=== PATIENT | male | born 1990 | race Asian ===

== ENCOUNTER 2024-03-04 19:50 | Emergency (ER) | payer BC ==
[2024-03-04] MEDS ORDERED: ONDANSETRON 4 MG/2 ML VIAL ONE (20:38)
[2024-03-04] MEDS ORDERED: NA CHLORIDE 0.9% 1,000 ML ONE (20:38)
[2024-03-04] MEDS ORDERED: FAMOTIDINE 20 MG/2 ML VIAL IV ONE (20:38)
--- NOTE | 2024-03-04 21:11 | RAD REPORT ---
EXAM: Chest Single View HISTORY: epigastric pain COMPARISON: None. FINDINGS: LUNGS/PLEURA: The lungs are clear. No pleural effusions or pneumothorax. No pulmonary edema. MEDIASTINUM: The mediastinal silhouette is within normal limits. CARDIAC: The cardiac silhouette is within normal limits. UPPER ABDOMEN: No significant abnormality. BONES: No acute abnormality. LINES/TUBES/OTHER: N/A IMPRESSION: No evidence of acute cardiopulmonary disease.
[2024-03-04 21:12] LABS: Albumin 3.6 g/dL (3.4-5.0); Albumin/Globulin Ratio 0.8 (1.1-1.8); Anion Gap 11.6 mEq/L (5.0-15.0); Bilirubin Total 0.5 mg/dL (0.2-1.0); Globulin 4.6 g/dL (2.3-3.5); Potassium 3.6 mEq/L (3.5-5.1); Protein, Total 8.2 g/dL (6.4-8.2)
--- NOTE | 2024-03-04 21:20 | RAD REPORT ---
Abdomen Exam Limited: 03/04/2024 8:50 PM CLINICAL HISTORY: EPIGASTRIC PAIN STUDY: Limited right upper quadrant ultrasound of abdomen. COMPARISON: None. FINDINGS: Liver: Limited evaluation but grossly unremarkable. Bile ducts: No intrahepatic or extrahepatic biliary ductal dilatation. Common bile duct measures 2 mm. Gallbladder: Negative for cholelithiasis or acute cholecystitis. No gallbladder wall thickening. Smal l gallbladder polyp measuring 4 mm. IMPRESSION: Negative for cholelithiasis or acute cholecystitis. No biliary ductal dilatation. 4 mm gallbladder polyp. Assuming the patient is low risk for gallbladder cancer, these are frequently followed with a twelve-month ultrasound.
[2024-03-04 21:51] LABS: Absolute Basophils 0.1 K/uL (0-0.5); Absolute Lymphocytes (CBC) 1.1 K/uL (0.7-4.9); Absolute Monocytes 0.4 K/uL (0.1-1.3); Absolute Neutrophil 6.9 K/uL (1.8-8.0); Basophils % 0.7 % (0-1.3); Eosinophils % 0.3 % (0-4.4); Hematocrit 16.1 % (39.6-49.0); Lymphocytes % 12.7 % (15.3-44.8); MCH 12.2 pg (27.0-35.0); MCHC 25.1 g/dL (32.0-36.0); MCV < 50.0 fL (80-100); Monocytes % 4.5 % (3.3-12.3); Neutrophils % 81.8 % (41.7-73.7); Nucleated Red Blood Cells % 0.3 % (0-0); Platelets 326 thou/uL (152-406); Red Cell Distribution Width 24.4 % (12.1-15.2)
--- NOTE | 2024-03-04 21:56 | RAD REPORT ---
EXAMINATION: CT ABDOMEN AND PELVIS WITH CONTRAST CLINICAL INDICATION: Male, 34 years old.EPIGASTRIC PAIN TECHNIQUE: CT abdomen and pelvis was performed, after the administration of IV contrast, as per [facility] protocol. Axial, sagittal and coronal reconstructions were obtained. One or more of the following dose reduction techniques were used: Automated exposure control, adjustment of the mA and/o r kV according to patient size, and/or iterative reconstruction. Unless otherwise specified, incidental findings do not require dedicated imaging follow-up. [id number]. COMPARISON: No prior exam. FINDINGS: LOWER CHEST: No acute process identified.No significant pericardial effusion. Mild circumferential th ickening of the distal esophagus which could reflect esophagitis. UPPER GI: No significant abnormality. LIVER: No significant focal abnormality. GALLBLADDER/BILE DUCTS: No biliary ductal dilatation.? PANCREAS: No mass, ductal dilation, or forest-pancreatic fluid. SPLEEN: Mild splenomegaly. ADRENALS: No adrenal masses. KIDNEYS AND URETERS: No hydronephrosis.No suspicious renal mass. ABDOMINAL AORTA AND OTHER VESSELS: Portal vein thrombus is present. Cavernous transformation noted. T hrombus also involves the SMV and splenic vein. The portal vein is expanded. PERITONEUM: Omental and mesenteric nodularity is present near the mass in the transverse colon. Mild nonspecific pelvic free fluid. LYMPH NODES: Mesenteric implant versus enlarged lymph node measuring 3.7 x 2.5 cm. ABDOMINAL WALL: Unremarkable SMALL BOWEL/COLON: Constricting mass present at the proximal transverse colon concerning for colonic neoplasm. The mass is annular constricting but does not result in a complete obstruction. URINARY BLADDER: Underdistended but grossly unremarkable. REPRODUCTIVE ORGANS: No pathologic process. MUSCULOSKELETAL: No acute or suspicious osseous abnormality. ADDITIONAL FINDINGS: None. IMPRESSION: Annular constricting mass at the proximal transverse colon consistent with a colonic neoplasm. There is evidence of omental/mesenteric spread including venous thrombosis involving the portal vein, splenic vein, and some of the upstream branches. There is significant narrowing of the lumen of the t ransverse colon which may be contributing to a mild partial bowel obstruction but no high-grade or complete obstruction identified.
[2024-03-04 23:00] LABS: Sqamous Epithelial None Seen /HPF (None Seen); Urine Bacteria None Seen /HPF (<20); Urine Bilirubin NEGATIVE (Negative); Urine Blood Negative (Negative); Urine Clarity Clear (Clear); Urine Color Light-Yellow (Yellow); Urine Culture Reflex Order NOT NEEDED; Urine Glucose NEGATIVE (Negative); Urine Ketones 1+ (Negative); Urine Microscopic Reflex YN ORDER UMIC; Urine Nitrite NEGATIVE (Negative); Urine Protein TRACE (Negative); Urine RBC <5 /HPF (None Seen); Urine Urobilinogen 1+ (Normal); Urine WBC <5 /HPF (<5)
[2024-03-04 23:02] LABS: Specific Gravity > 1.030 (1.005-1.030)
[2024-03-04 23:12] LABS: PT Prothrombin Time 13.7 SECONDS (9.4-12.5); PTT, Activated Partial Thromb 22.5 SECONDS (24.3-36.9); Protime INR 1.31
--- NOTE | 2024-03-04 23:14 | ER ---
Nurse's Notes [facility] Name: Feliz Jacobson Age: 34 yrs Sex: Male : 1990 Arrival Date: 03/04/2024 Time: 19:50 Bed 7 Private MD: Diagnosis: Anemia, unspecified;Colon Mass;Portal vein thrombosis Presentation: 03/04 20:12 Chief complaint: Patient states: c/o epigastric pain for a couple of days with n/v. me1 Pain worse after eating. Coronavirus screen: At this time, the client does not indicate any symptoms associated with coronavirus-19. Ebola Screen: No symptoms or risks identified at this time. Initial Sepsis Screen: Does the patient meet any 2 criteria? HR > 90 bpm. Does the patient have a suspected source of infection?. Risk Assessment: Do you want to hurt yourself or someone else? Patient reports no desire to harm self or others. Onset of symptoms is unknown. 20:12 Method Of Arrival: Ambulatory tx1 20:12 Acuity: ROXANE 3 me1 Historical: - Allergies: 20:14 No Known Allergies; me1 - Home Meds: 20:14 None [Active]; me1 - PMHx: 20:14 None; me1 - PSHx: 20:14 None; me1 - Immunization history:: Adult Immunizations up to date. - Infectious Disease History:: Denies. - Social history:: Smoking status: Patient denies any tobacco usage or history of. Screenin:25 [facility] ED Fall Risk Assessment (Adult) History of falling in the last 3 months, kj2 including since admission No falls in past 3 months (0 pts) Confusion or Disorientation No (0 pts) Intoxicated or Sedated No (0 pts) Impaired Gait No (0 pts) Mobility Assist Device Used No (0 pt) Altered Elimination No (0 pt) Score/Fall Risk Level 0 - 2 = Low Risk Maintained a safe environment, Hourly rounding (assess needs \T\ fall precautionary measures) done. Abuse screen: Denies threats or abuse. Denies injuries from another. Nutritional screening: No deficits noted. Tuberculosis screening: No symptoms or risk factors identified. Assessment: 21:24 General: Appears in no apparent distress. Behavior is calm, cooperative. Pain: kj2 Complains of pain in abdominal Pain currently is 5 out of 10 on a pain scale. Neuro: Level of Consciousness is awake, alert, obeys commands, Oriented to person, place, time, situation. Cardiovascular: Patient's skin is warm and dry. Respiratory: Airway is patent Respiratory effort is even, unlabored. GI: Abdomen is tender to palpation X 4 quads. Reports nausea, vomiting. : No signs and/or symptoms were reported regarding the genitourinary system. 22:37 General: Appears in no apparent distress. comfortable, well groomed, well developed, al5 Behavior is calm, cooperative. Pain: Complains of pain in abdomen. Neuro: Level of Consciousness is awake, alert, obeys commands, Oriented to person, place, time, situation. Cardiovascular: Patient's skin is warm and dry. Respiratory: Airway is patent Respiratory effort is even, unlabored, Respiratory pattern is regular, symmetrical. GI: Abdomen is flat, non-distended, Bowel sounds present X 4 quads. Abd is soft Abdomen is tender to palpation X 4 quads. Reports lower abdominal pain, upper abdominal pain, bloody stool. : No signs and/or symptoms were reported regarding the genitourinary system. EENT: No signs and/or symptoms were reported regarding the EENT system. Derm: Skin is intact, is healthy with good turgor, Skin is pale. Musculoskeletal: No signs and/or symptoms reported regarding the musculoskeletal system. 23:39 Reassessment: Patient appears in no apparent distress at this time. No changes from al5 previously documented assessment. Patient and/or family updated on plan of care and expected duration. Pain level reassessed. Patient is alert, oriented x 3, equal unlabored respirations, skin warm/dry/pink. 03/05 00:46 Reassessment: Patient appears in no apparent distress at this time. No changes from al5 previously documented assessment. Patient and/or family updated on plan of care and expected duration. Pain level reassessed. Patient is alert, oriented x 3, equal unlabored respirations, skin warm/dry/pink. 01:31 Reassessment: Patient appears in no apparent distress at this time. No changes from al5 previously documented assessment. Patient and/or family updated on plan of care and expected duration. Pain level reassessed. Patient is alert, oriented x 3, equal unlabored respirations, skin warm/dry/pink. gave report to MARTA Shelton at [facility]. 02:12 Reassessment: Patient appears in no apparent distress at this time. No changes from al5 previously documented assessment. Patient and/or family updated on plan of care and expected duration. Pain level reassessed. Patient is alert, oriented x 3, equal unlabored respirations, skin warm/dry/pink. report given to [facility]. blood transfusion transfer of care completed and checked off. Vital Signs: 03/04 20:12 BP 142 / 87; Pulse 101; Resp 17; Temp 98.6; Pulse Ox 100% ; Weight 63.5 kg; Height 5 me1 ft. 3 in. ; Pain 8/10; 22:38 BP 148 / 65; Pulse 74; Resp 16; Pulse Ox 97% on R/A; al5 23:00 BP 135 / 76; Pulse 76; Resp 16; Pulse Ox 100% on R/A; al5 23:30 BP 135 / 76; Pulse 76; Resp 15; Pulse Ox 100% on R/A; al5 03/05 00:00 BP 132 / 75; Pulse 80; Resp 15; Pulse Ox 100% on R/A; al5 00:30 BP 132 / 76; Pulse 78; Resp 16; Pulse Ox 100% on R/A; al5 01:00 al5 03/04 20:12 Body Mass Index 24.80 (63.50 kg, 160.02 cm) [facility] [place] 03/04 20:12 Pain Scale: Adult me1 01:00 see blood transfusion flow sheet for vitals al5 ED Course: 03/04 19:55 Patient arrived in ED. im 19:55 Abhilash Siddiqui PA is PHCP. cp 19:55 Rell Monge DO is Attending Physician. cp 20:14 Triage completed. me1 20:14 Arm band placed on Patient placed in an exam room. me1 20:46 CBC with Diff Sent. vk 20:46 CMP Sent. vk 20:46 Lipase Sent. vk 20:46 Inserted saline lock: 20 gauge in left antecubital area, using aseptic technique. Blood vk collected. Flushed with 10 mL NS. 20:47 Initial lab(s) drawn, by tx, sent to lab. vk 21:08 XRAY Chest (1 view) In Process Unspecified. EDMS 21:11 US Abdomen Limited: gallbladder In Process Unspecified. EDMS 21:22 Brittany Wooten, RN is Primary Nurse. kj2 21:26 Patient has correct armband on for positive identification. Provided Education on: fall kj2 prevention. 21:30 CT Abd/Pelvis - IV Contrast Only In Process Unspecified. EDMS 22:26 Consent for blood and/or blood product transfusion explained by staff, explained by al5 physician, signed by patient. 22:38 No provider procedures requiring assistance completed. al5 22:39 Blood Culture Adult (2) Sent. al5 22:39 Lactate w/ 2H reflex if indic. Sent. al5 22:39 Type And Screen Sent. al5 23:16 Attempted to Initiated transfer with [facility], no answer. Will call back. rv1 23:21 Initiated transfer with Cass at [facility]. rv1 03/05 00:08 Doc to Doc with Sprue [employer]ting [employer] Operator at [facility]. rv1 00:[address] Nixon to [facility] 6 [facility] 1. Report # [id number]. rv1 00:45 Inserted saline lock: 20 gauge in right antecubital area, using aseptic technique. vk Blood collected. Flushed with 10 mL NS. 00:57 Awaiting blood transfusion to be started before transfer. rv1 02:13 Patient transferred, IV remains in place. al5 Administered Medications: 03/04 21:22 Drug: Ondansetron IVP 4 mg IVP once; over 2 minutes Route: IVP; Site: left antecubital; kj2 22:39 Follow up: Response: No adverse reaction al5 21:23 Drug: Famotidine IVP 20 mg IVP once; dilute with 10 mL 0.9% NaCl; give over 2 minutes kj2 Route: IVP; Site: left antecubital; 22:39 Follow up: Response: No adverse reaction al5 21:23 Drug: NS 0.9% IV 1000 ml IV at 1 bolus Per protocol; to be given as a bolus over 60 kj2 minutes Route: IV; Rate: 1 bolus; Site: left antecubital; 03/05 01:28 Follow up: Response: No adverse reaction; IV Status: Completed infusion; IV Intake: al5 1000ml 01:13 Drug: Pantoprazole IVP 40 mg IVP once Route: IVP; Site: left antecubital; al5 01:23 Follow up: Response: No adverse reaction al5 01:13 Drug: Pantoprazole IVP 40 mg IVP once Route: IVP; Site: left antecubital; al5 01:23 Follow up: Response: No adverse reaction al5 01:15 Drug: Pantoprazole IV 8 mg/hr IV at 25 ml/hr continuous; (Standard dilution is 80 mg in al5 250 mL NS) Route: IV; Rate: 25 ml/hr; Site: left antecubital; 02:06 Follow up: Response: No adverse reaction; IV Status: Infusion continued upon transfer al5 Medication: 03/04 22:38 VIS not applicable for this client. al5 Intake: 03/05 01:28 IV: 1000ml; Total: 1000ml. al5 Outcome: 03/04 23:13 ER care complete, transfer ordered by . ms3 03/05 02:13 Transferred by [facility] to [facility] [place], Transfer al5 form completed. Condition: stable Instructed on the need for transfer, 02:14 Patient left the ED. al5 Signatures: Dispatcher [employer] EDMS Abhilash Siddiqui PA PA cp Sims, Marcus, DO DO ms3 Mechelle Beasley rv1 Erin Mathew Michelle, RN RN me1 Linda Chavez Amanda RN RN al5 Brittany Wooten, MARTA RN kj2 Corrections: (The following items were deleted from the chart) 03/04 23:17 23:15 Missed attempt(s): 22 gauge in right hand. Bleeding controlled, band aid applied, al5 catheter tip intact. al5 23:17 23:16 Missed attempt(s): 22 gauge in right antecubital area. Bleeding controlled, band al5 aid applied, catheter tip intact. al5 23:17 23:16 BP 118 / 70; Pulse 86bpm; Resp 16bpm; Pulse Ox 99% RA; al5 al5
--- NOTE | 2024-03-04 23:14 | EDPHYS ---
Physician Documentation [facility] Name: Feliz Jacobson Age: 34 yrs Sex: Male : 1990 Arrival Date: 03/04/2024 Time: 19:50 Bed 7 Private MD: ED Physician Rell Monge HPI: 03/04 20:20 This 34 yrs old Male presents to ER via Ambulatory with complaints of Abdominal cp Pain, Nausea/Vomiting. 20:20 The patient presents with abdominal pain in the epigastric area. cp 20:20 Onset: The symptoms/episode began/occurred for past several days. The symptoms radiate cp to back. Associated signs and symptoms: Pertinent positives: nausea and vomiting, decreased appetite. 20:20 Severity of pain: in the emergency department the pain is unchanged despite home cp interventions. Historical: - Allergies: 20:14 No Known Allergies; me1 - Home Meds: 20:14 None [Active]; me1 - PMHx: 20:14 None; me1 - PSHx: 20:14 None; me1 - Immunization history:: Adult Immunizations up to date. - Infectious Disease History:: Denies. - Social history:: Smoking status: Patient denies any tobacco usage or history of. ROS: 20:25 Constitutional: Positive for weight loss, Negative for body aches, chills, fever, poor cp PO intake, 20:25 Abdomen/GI: Positive for abdominal pain, nausea and vomiting, decreased appetite, cp Negative for diarrhea, constipation, active vomiting, 20:25 Eyes: Negative for injury, pain, redness, and discharge, cp 20:25 ENT: Negative for drainage from ear(s), ear pain, sore throat, difficulty swallowing, cp difficulty handling secretions, 20:25 Cardiovascular: Negative for chest pain, edema, palpitations, 20:25 Respiratory: Negative for cough, shortness of breath, wheezing, 20:25 Neuro: Negative for altered mental status, headache, syncope, near syncope, 20:25 All other systems are negative, Exam: 20:30 Constitutional: The patient appears in no acute distress, alert, awake, cp non-diaphoretic, non-toxic, well developed, well nourished, pale, 20:30 Head/Face: Normocephalic, atraumatic. cp 20:30 Eyes: Periorbital structures: appear normal, Conjunctiva: normal, no exudate, no injection, Sclera: no appreciated abnormality, Lids and lashes: appear normal, bilaterally, 20:30 ENT: External ear(s): are unremarkable, Nose: is normal, Mouth: Lips: moist, Oral mucosa: pink and intact, moist, Posterior pharynx: Airway: no evidence of obstruction, patent, 20:30 Chest/axilla: Inspection: normal, 20:30 Cardiovascular: Rate: tachycardic, Rhythm: regular, Edema: is not appreciated, JVD: is not appreciated, 20:30 Respiratory: the patient does not display signs of respiratory distress, Respirations: normal, no use of accessory muscles, no retractions, labored breathing, is not present, Breath sounds: are clear throughout, no decreased breath sounds, no stridor, no wheezing, 20:30 Abdomen/GI: Inspection: abdomen appears normal, Bowel sounds: active, all quadrants, Palpation: soft, in all quadrants, moderate abdominal tenderness, in the epigastric area, rebound tenderness, is not appreciated, involuntary guarding, is not appreciated, 20:30 Back: CVA tenderness, is absent, 20:30 Neuro: Orientation: to person, place \T\ time. Mentation: is normal, Motor: moves all fours, strength is normal, Sensation: is normal, Gait: is steady, at a normal pace, without difficulty, 22:23 ECG was reviewed by the Attending Physician. cp 22:54 : Rectal exam: Stool: brown, no gross blood, cp Vital Signs: 20:12 BP 142 / 87; Pulse 101; Resp 17; Temp 98.6; Pulse Ox 100% ; Weight 63.5 kg; Height 5 me1 ft. 3 in. ; Pain 8/10; 22:38 BP 148 / 65; Pulse 74; Resp 16; Pulse Ox 97% on R/A; al5 23:00 BP 135 / 76; Pulse 76; Resp 16; Pulse Ox 100% on R/A; al5 23:30 BP 135 / 76; Pulse 76; Resp 15; Pulse Ox 100% on R/A; al5 03/05 00:00 BP 132 / 75; Pulse 80; Resp 15; Pulse Ox 100% on R/A; al5 00:30 BP 132 / 76; Pulse 78; Resp 16; Pulse Ox 100% on R/A; al5 01:00 al5 03/04 20:12 Body Mass Index 24.80 (63.50 kg, 160.02 cm) me1 03/04 20:12 Pain Scale: Adult me1 01:00 see blood transfusion flow sheet for vitals al5 MDM: 03/04 20:15 Medical Screening Exam initiated cp 21:00 Differential diagnosis: cholecystitis, Cholelithiasis, gastritis, gastroesophageal cp reflux disease, GI Bleed, non-specific abd pain, pancreatitis, Peptic Ulcer Disease, Perf. Duodenal Ulcer, Perf. Gastric Ulcer. 03/05 00:15 ED course: consult with DR Nixon, soldering machine operator helper at [facility], will accept patient as cp transfer. 00:15 Data reviewed: vital signs, nurses notes, lab test result(s), EKG, radiologic studies, cp CT scan, plain films, I have discussed the patient's presentation/case with the attending Emergency Department Physician; and as a result, I will transfer patient. 00:15 I considered the following discharge prescriptions or medication management in the emergency department Medications were administered in the Emergency Department. See MAR. Independent interpretation of the following test(s) in the Emergency Department EKG: See my EKG interpretation above. Counseling: I had a detailed discussion with the patient and/or guardian regarding the historical points, exam findings, and any diagnostic results supporting the discharge/admit diagnosis, lab results, radiology results, the need to transfer to another facility, for higher level of care. 03/04 21:58 Order name: Type And Screen cp 03/04 20:17 Order name: CBC with Diff; Complete Time: 00:12 cp 03/04 20:17 Order name: CMP; Complete Time: 21:57 cp 03/04 20:17 Order name: Lipase; Complete Time: 21:57 cp 03/04 20:17 Order name: Urinalysis w/ reflexes; Complete Time: 23:12 cp 03/04 21:55 Order name: CBC Smear Scan; Complete Time: 00:12 EDMS 03/04 21:58 Order name: Lactate w/ 2H reflex if indic.; Complete Time: 00:12 cp 03/04 21:58 Order name: Blood Culture Adult (2) cp 03/04 21:58 Order name: Magnesium; Complete Time: 00:12 cp 03/04 21:58 Order name: NT PRO-BNP; Complete Time: 00:12 cp 03/04 21:58 Order name: PT-INR; Complete Time: 23:13 cp 03/04 21:58 Order name: Troponin HS; Complete Time: 00:12 cp 03/04 21:58 Order name: Ptt, Activated; Complete Time: 23:13 cp 03/04 23:06 Order name: Packed RBC Leukored EDMS 03/04 23:30 Order name: ABO/RH no charge; Complete Time: 00:12 EDMS 03/04 20:17 Order name: CT Abd/Pelvis - IV Contrast Only; Complete Time: 21:57 cp 03/04 20:17 Order name: XRAY Chest (1 view); Complete Time: 21:57 cp 03/04 20:17 Order name: US Abdomen Limited: gallbladder; Complete Time: 21:57 cp 03/04 21:58 Order name: EKG; Complete Time: 21:59 cp 03/04 20:17 Order name: IV Saline Lock; Complete Time: 20:46 cp 03/04 20:17 Order name: Labs collected and sent; Complete Time: 20:46 cp 03/04 21:02 Order name: Misc. Order: RECOLLECT LAVENDER AND GREEN TOP; Complete Time: 21:22 rv1 03/04 21:58 Order name: Cardiac monitoring; Complete Time: 22:06 cp 03/04 21:58 Order name: EKG - Nurse/Tech; Complete Time: 22:35 cp 03/04 21:58 Order name: O2 Per Protocol; Complete Time: 22:06 cp 03/04 21:58 Order name: O2 Sat Monitoring; Complete Time: 22:35 cp 03/04 23:02 Order name: Transfuse; Complete Time: 02:06 cp EC/26 22:23 Rate is 74 beats/min. Rhythm is regular. ID interval is normal. QRS interval is normal. cp QT interval is normal. T waves are Inverted in lead aVR. Interpreted by me. Reviewed by me. Administered Medications: 21:22 Drug: Ondansetron IVP 4 mg IVP once; over 2 minutes Route: IVP; Site: left antecubital; kj2 22:39 Follow up: Response: No adverse reaction al5 21:23 Drug: Famotidine IVP 20 mg IVP once; dilute with 10 mL 0.9% NaCl; give over 2 minutes kj2 Route: IVP; Site: left antecubital; 22:39 Follow up: Response: No adverse reaction al5 21:23 Drug: NS 0.9% IV 1000 ml IV at 1 bolus Per protocol; to be given as a bolus over 60 kj2 minutes Route: IV; Rate: 1 bolus; Site: left antecubital; 03/05 01:28 Follow up: Response: No adverse reaction; IV Status: Completed infusion; IV Intake: al5 1000ml 01:13 Drug: Pantoprazole IVP 40 mg IVP once Route: IVP; Site: left antecubital; al5 01:23 Follow up: Response: No adverse reaction al5 01:13 Drug: Pantoprazole IVP 40 mg IVP once Route: IVP; Site: left antecubital; al5 01:23 Follow up: Response: No adverse reaction al5 01:15 Drug: Pantoprazole IV 8 mg/hr IV at 25 ml/hr continuous; (Standard dilution is 80 mg in al5 250 mL NS) Route: IV; Rate: 25 ml/hr; Site: left antecubital; 02:06 Follow up: Response: No adverse reaction; IV Status: Infusion continued upon transfer al5 Disposition: 03/04 23:12 I was immediately available on-site in the Emergency Department for consultation in the ms3 care of the patient. Disposition Summary: 03/04/24 23:13 Transfer Ordered Notes: Transfer Location: [facility] ms3 Reason: Higher level of care ms3 Problem: new ms3 Symptoms: are unchanged ms3 Condition: Serious(03/05/24 00:16) cp Accepting Physician: Dr Nixon(03/05/24 02:14) al5 Diagnosis - Anemia, unspecified ms3 - Colon Mass ms3 - Portal vein thrombosis ms3 Forms: - Medication Reconciliation Form ms3 - SBAR form ms3 Critical care time excluding procedures: 03/06 01:32 Critical care time: Bedside Care: 5 minutes, Consultation: 30 minutes. Total time: 35 cp minutes Signatures: Dispatcher [employer] EDMS Abhilash Siddiqui PA PA cp Rell Monge DO DO ms3 Mechelle Beasley rv1 Gracy Enamorado RN RN me1 Jennifer Zaman RN RN al5 Brittany Wooten, RN RN kj2 Corrections: (The following items were deleted from the chart) 03/04 20:17 20:17 CBC+H.LAB.BRZ ordered. EDMS EDMS 20:17 20:17 COMPREHENSIVE METABOLIC PANEL+C.LAB.BRZ ordered. EDMS EDMS 20:17 20:17 LIPASE+C.LAB.BRZ ordered. EDMS EDMS 20:17 20:17 Urinalysis+U.LAB.BRZ ordered. EDMS EDMS 20:17 20:17 Abdomen Limited+US.RAD.BRZ ordered. EDMS EDMS 21:59 21:59 TYPE AND SCREEN+BB.LAB.BRZ ordered. EDMS EDMS 21:59 21:59 LACTATE+C.LAB.BRZ ordered. EDMS EDMS 21:59 21:59 BLOOD CULTURE*+BA.LAB.BRZ ordered. EDMS EDMS 21:59 21:59 MAGNESIUM+C.LAB.BRZ ordered. EDMS EDMS 21:59 21:59 PROBNP+C.LAB.BRZ ordered. EDMS EDMS 21:59 21:59 PROTIME (+INR)+COAG.LAB.BRZ ordered. EDMS EDMS 21:59 21:59 Troponin High Sensitivity+C.LAB.BRZ ordered. EDMS EDMS 21:59 21:59 PTT, ACTIVATED+COAG.LAB.BRZ ordered. EDMS EDMS 03/05 00:16 03/04 23:13 Dr chavez cp 03/05 00:16 03/04 23:13 May chavez cp 03/05 02:14 00:16 Dr Hussain shah al5
[2024-03-04 23:20] LABS: Magnesium 2.1 mg/dL (1.6-2.4); Troponin High Sensitivity 7.1 pg/mL (<58.9)
[2024-03-04 23:41] LABS: Anisocytosis 3+; Blood Morphology Comment NOTED (NOT SEEN); Hypochromasia 3+; Microcytosis 3+; Ovalocytes 2+; Platelet Estimate ADEQ; Teardrop Cell 2+; White Blood Cell Scan OK (OK)
[2024-03-05] MEDS ORDERED: NA CHLORIDE 0.9% 250 ML ONE ×2 (00:37→00:43)
[2024-03-05] MEDS ORDERED: PANTOPRAZOLE 40 MG INJ ONE (00:50)
[2024-03-05 07:59] VITALS: TEMP 98.6
[2024-03-05 08:04] VITALS: O2SAT 100
[2024-03-05 08:07] VITALS: BP 132/76
--- NOTE | 2024-03-07 12:37 | EKG ---
Test Date: 2024-03-04 Test Time: 22:17:34 [employer]: EZIO MEASUREMENT RESULTS: Intervals: Rate: 74 [place]: 150 QRSD: 80 QT: 396 QTc: 439 Center Line: P: 54 [place]: 150 QRS: 50 T: 36 INTERPRETIVE STATEMENTS: Normal sinus rhythm with sinus arrhythmia Normal ECG No previous ECG available for comparison Electronically Signed On 03-07-24 12:33:04 CATERPILL[employer] TRACTOR OPERATOR by Jose M Phillips
== END 2024-03-05 02:14 | disposition short-term general hospital (02) ==
LOC: ER 19:50
PROC: 30233N1 Transfusion of Nonautologous Red Blood Cells into Peripheral Vein, Percutaneous Approach (ICD-10-PCS; principal; 2024-03-05)
DX: D64.9 Anemia, unspecified (principal); I81 Portal vein thrombosis; K63.89 Other specified diseases of intestine
CPT/HCPCS: 96365; 96361; 93005; 87040 ×2; 85025; 81001; 36415; 86900; 83735; 86850; 85610; 86901; 83605; 85730; 86920 ×2; 84484; 83690; 80053; 83880; 74177; 71045; 76705; 96375; 99285; 36430; Q9967; J2470; J2405; P9016; J7050 ×2; J7030